=== PATIENT | male | born 1995 | race African-American/Black ===

== ENCOUNTER 2019-01-02 20:43 | Emergency (ER) | payer OTHER ==
[~2019-01-02] VITALS: Ht 182.9 cm; Wt 79.8 kg
[2019-01-02 22:01] LABS: URINE BILIRUBIN NEGATIVE (Negative); URINE BLOOD 1+ (Negative); URINE CLARITY CLEAR; URINE COLOR YELLOW; URINE GLUCOSE-RANDOM* NEGATIVE (Negative); URINE KETONES NEGATIVE (Negative); URINE NITRITE-REFLEX NEGATIVE (Negative); URINE PROTEIN (DIPSTICK) NEGATIVE (Negative); URINE SPECIFIC GRAVITY 1.015 (1.005-1.035)
[2019-01-02 22:03] LABS: URINE LEUKOCYTES-REFLEX 2+ (Negative)
[2019-01-02 22:30] LABS: BACTERIA-REFLEX >30 Many /HPF (None Seen); CASTS None Seen /LPF (None Seen); CRYSTALS None Seen /LPF (None Seen); MUCUS None Seen strn/LPF (None Seen); SQUAMOUS None Seen /LPF (0-3); URINE RBC 0-2 Rare /HPF (0-2); URINE WBC-REFLEX 0-5 Rare /HPF (0-5)
[2019-01-02] MEDS ORDERED: KEFLEX500 M1 PO (22:36)
[2019-01-02 22:49] VITALS: BP 138/87
== END 2019-01-02 22:51 | disposition home or self-care (01) ==
LOC: ER 20:43
PROVIDERS: Emergency Medicine
DX: N39.0 Urinary tract infection, site not specified (principal); Z88.6 Allergy status to analgesic agent

== ENCOUNTER 2019-06-20 10:03 | Emergency (ER) | payer OTHER ==
[~2019-06-20] VITALS: Ht 182.9 cm; Wt 81.7 kg
[~2019-06-20 10:03] MED LIST: KEFLEX500 M1 PO
[2019-06-20] MEDS ORDERED: ADVATE3000 UNIT IV (10:27)
[2019-06-20] MEDS ORDERED: DULCOLAX10 MG RECTAL (10:28)
[2019-06-20 11:55] LABS: URINE BILIRUBIN NEGATIVE (Negative); URINE BLOOD 1+ (Negative); URINE CLARITY CLEAR; URINE COLOR YELLOW; URINE GLUCOSE-RANDOM* NEGATIVE (Negative); URINE KETONES NEGATIVE (Negative); URINE NITRITE-REFLEX NEGATIVE (Negative); URINE PROTEIN (DIPSTICK) NEGATIVE (Negative)
[2019-06-20 11:56] LABS: URINE LEUKOCYTES-REFLEX 1+ (Negative)
[2019-06-20 12:09] LABS: CASTS None Seen /LPF (None Seen); CRYSTALS None Seen /LPF (None Seen); SQUAMOUS 0-3 Few /LPF (0-3); URINE RBC 0-2 Rare /HPF (0-2); URINE WBC-REFLEX 0-5 Rare /HPF (0-5)
[2019-06-20 12:26] LABS: CALCIUM 9.7 mg/dL (8.5-10.1); CREATININE 0.6 mg/dL (0.7-1.3); POTASSIUM 3.6 mmol/L (3.5-5.1)
[2019-06-20 12:28] LABS: ABSOLUTE NEUTROPHILS 3.7 thou/uL (1.4-8.2); BASOPHILS 0.6 % (0.0-2.0); EOSINOPHILS 1.1 % (0.0-3.0); HEMATOCRIT 43.3 % (42.0-52.0); HEMOGLOBIN 14.2 gm/dL (14.0-18.0); LYMPHOCYTES 34.5 % (24.0-44.0); MCH 29.7 pg (26.0-34.0); MCHC 32.8 g/dL (28.0-37.0); MCV 90.5 fL (80.0-100.0); MONOCYTES 10.8 % (1.0-8.0); PLATELET COUNT 296 thou/uL (150-400); RBC 4.78 mil/uL (4.50-6.00)
[2019-06-20 12:32] LABS: ALBUMIN 4.1 g/dL (3.4-5.0); TOTAL BILIRUBIN 0.8 mg/dL (<0.1-1.0)
[2019-06-20] MEDS ORDERED: KEFLEX500 M1 PO (12:57)
[2019-06-20] MEDS ORDERED: OXYBUTYNIN 5 MG5 M2 PO (13:02)
[2019-06-20 13:24] VITALS: BP 127/86
== END 2019-06-20 13:24 | disposition home or self-care (01) ==
LOC: ER 10:03
PROVIDERS: Emergency Medicine; Physician Assistant
DX: N39.0 Urinary tract infection, site not specified (principal); R09.81 Nasal congestion; Z88.6 Allergy status to analgesic agent

== ENCOUNTER 2021-06-29 19:07 | Emergency (ER) | payer OTHER ==
[~2021-06-29] VITALS: Ht 182.9 cm; Wt 81.7 kg
[~2021-06-29 19:07] MED LIST changes: +ADVATE3000 UNIT IV; +DULCOLAX10 MG RECTAL; +OXYBUTYNIN 5 MG5 M2 PO
[2021-06-29 19:50] VITALS: BP 153/79
[2021-06-29 20:08] LABS: URINE BILIRUBIN NEGATIVE (Negative); URINE BLOOD 3+ (Negative); URINE COLOR YELLOW; URINE GLUCOSE-RANDOM* NEGATIVE (Negative); URINE KETONES 3+ (Negative); URINE NITRITE-REFLEX NEGATIVE (Negative); URINE PROTEIN (DIPSTICK) 1+ (Negative)
[2021-06-29 20:09] LABS: URINE LEUKOCYTES-REFLEX 3+ (Negative)
[2021-06-29 20:13] LABS: URINE REDUCING SUBSTANCE NEGATIVE
[2021-06-29 20:14] LABS: URINE CLARITY SL.CLOUDY
[2021-06-29] MEDS ORDERED: NORCO7.5 PO (20:14)
[2021-06-29 20:19] LABS: CASTS None Seen /LPF (None Seen); SQUAMOUS 0-3 Few /LPF (0-3); URINE WBC-REFLEX >25 Many /HPF (0-5)
[2021-06-29 20:20] LABS: URINE RBC >20 Many /HPF (NONE SEEN)
[2021-06-29 20:21] LABS: CRYSTALS None Seen /LPF (None Seen); WBC CLUMPS Moderate (None Seen)
[2021-06-29] MEDS ORDERED: CEPHALEXIN500 MG PO (20:30)
== END 2021-06-29 20:55 | disposition home or self-care (01) ==
LOC: ER 19:07
PROVIDERS: Nurse Practitioner Family
DX: N39.0 Urinary tract infection, site not specified (principal); Z98.890 Other specified postprocedural states; Z79.899 Other long term (current) drug therapy; Z79.82 Long term (current) use of aspirin

== ENCOUNTER 2021-07-20 11:01 | Emergency (ER) | payer OTHER ==
[~2021-07-20] VITALS: Ht 182.9 cm; Wt 81.7 kg
[~2021-07-20 11:01] MED LIST changes: +CEPHALEXIN500 MG PO; +NORCO7.5 PO
[2021-07-20 11:41] LABS: URINE BILIRUBIN NEGATIVE (Negative); URINE BLOOD 1+ (Negative); URINE CLARITY CLEAR; URINE COLOR YELLOW; URINE GLUCOSE-RANDOM* NEGATIVE (Negative); URINE KETONES NEGATIVE (Negative); URINE LEUKOCYTES-REFLEX 3+ (Negative); URINE NITRITE-REFLEX NEGATIVE (Negative); URINE PROTEIN (DIPSTICK) NEGATIVE (Negative); URINE UROBILINOGEN 0.2 E.U./dl (0.2-1.0)
[2021-07-20 11:56] LABS: CASTS None Seen /LPF (None Seen); CRYSTALS None Seen /LPF (None Seen); SQUAMOUS None Seen /LPF (0-3); URINE RBC 1-2 Rare /HPF (NONE SEEN); URINE WBC-REFLEX >25 Many /HPF (0-5)
[2021-07-20] MEDS ORDERED: BACTRIM DS TAB1 EACH PO (12:22)
[2021-07-20 12:23] VITALS: BP 144/80
== END 2021-07-20 13:03 | disposition home or self-care (01) ==
LOC: ER 11:01
PROVIDERS: Emergency Medicine
DX: N39.0 Urinary tract infection, site not specified (principal); Z79.899 Other long term (current) drug therapy; Z88.8 Allergy status to other drugs, medicaments and biological substances